=== PATIENT | male | born 1950 | race Hispanic/Latino ===

== ENCOUNTER 2017-08-10 15:00 | Observation (INO) | payer OTHER ==
[~2017-08-10] VITALS: Ht 165.1 cm; Wt 96.8 kg
[~2017-08-10 15:00] MED LIST: ASPI-555 PO; CARV6.25 PO; CLOP75TA32 PO; FINA5TAB41 PO; GABA-318 PO; LEVO175T9 PO; LISI2.5T2 PO; NITR0.4T SL; PANT40TA25 PO; RANO10003 PO; SIMV20TA6 PO; TAMS0.4C32 PO; TRAM-355 PO; [UNRECOGNIZED DRUG - CODE] PO
[2017-08-10 15:23] LABS: BASOPHILS % (AUTO) 0.5 % (0.0-5.0); EOSINOPHILS % (AUTO) 1.3 % (0.0-8.0); LYMPHOCYTES % (AUTO) 12.6 % (21.0-51.0); MEAN CORPUSCULAR HEMOGLOBIN 31.4 pg (27.0-33.0); MEAN CORPUSCULAR HGB CONC 34.7 g/dL (32.0-36.0); MEAN CORPUSCULAR VOLUME 90.5 fL (79-99); MONOCYTES % (AUTO) 8.4 % (3.0-13.0); NEUTROPHILS % (AUTO) 77.2 % (40.0-77.0); PLATELET COUNT (AUTO) 201 K/uL (130-400); RED BLOOD CELL COUNT(AUTO) 4.86 MIL/uL (4.50-6.20); RED CELL DISTRIBUTION WIDTH 13.9 % (11.0-15.5); WHITE BLOOD COUNT (AUTO) 11.7 K/uL (4.8-10.8)
[2017-08-10 15:34] LABS: INR 0.95 (0.85-1.15); PARTIAL THROMBOPLASTIN TIME 26.5 SEC (26.3-35.5)
[2017-08-10 15:37] LABS: CREATININE 1.1 mg/dL (0.5-1.5); POTASSIUM 4.4 mmol/L (3.5-5.1)
[2017-08-10 16:08] LABS: ALBUMIN 3.8 g/dL (3.5-5.0); BILIRUBIN,TOTAL 0.6 mg/dL (0.2-1.0); CREATINE KINASE MB 0.5 ng/mL (0.5-3.6); TOTAL PROTEIN, SERUM 8.5 g/dL (6.0-8.3)
[2017-08-10 16:21] LABS: B-TYPE NATRIURETIC PEPTIDE 19 pg/mL (0-100)
[2017-08-10] MEDS ORDERED: ASPIRIN 325 MG TABLET ONE (16:43)
[2017-08-10] MEDS ORDERED: NITROGLYCERIN 1GM/1 INCH PACKET TD ONE (16:43)
[2017-08-10] MEDS ORDERED: ONDANSETRON HCL 4 MG/2 ML VIAL ONE (16:43)
[2017-08-10] MEDS ORDERED: MORPHINE SULFATE 2 MG/ML 1ML SYG ONE ×2 (16:44)
[2017-08-11 05:15] LABS: BASOPHILS % (AUTO) 0.4 % (0.0-5.0); EOSINOPHILS % (AUTO) 0.1 % (0.0-8.0); HEMATOCRIT 43.4 % (42-54); LYMPHOCYTES % (AUTO) 12.7 % (21.0-51.0); MEAN CORPUSCULAR HEMOGLOBIN 31.1 pg (27.0-33.0); MEAN CORPUSCULAR HGB CONC 34.7 g/dL (32.0-36.0); MEAN CORPUSCULAR VOLUME 89.8 fL (79-99); MONOCYTES % (AUTO) 8.2 % (3.0-13.0); NEUTROPHILS % (AUTO) 78.6 % (40.0-77.0); PLATELET COUNT (AUTO) 178 K/uL (130-400); RED BLOOD CELL COUNT(AUTO) 4.84 MIL/uL (4.50-6.20); RED CELL DISTRIBUTION WIDTH 13.9 % (11.0-15.5); WHITE BLOOD COUNT (AUTO) 7.5 K/uL (4.8-10.8)
[2017-08-11 05:31] LABS: CARBON DIOXIDE 25 mmol/L (21-32); CHLORIDE 97 mmol/L (101-111); GLOMERULAR FILTR. RATE CALC 80 mL/min (>60); GLUCOSE,RANDOM 168 mg/dL (70-105); POTASSIUM 3.7 mmol/L (3.5-5.1); SODIUM SERUM 132 mmol/L (136-145); UREA NITROGEN, BLOOD 15 mg/dL (7-18)
[2017-08-11 05:46] LABS: ALANINE AMINOTRANSFERASE 22 U/L (12-78); ALBUMIN 3.5 g/dL (3.5-5.0); ASPARTATE AMINOTRANSFERASE 15 U/L (10-37); BILIRUBIN,TOTAL 0.9 mg/dL (0.2-1.0); CREATINE KINASE MB < 0.5 ng/mL (0.5-3.6); CREATINE KINASE, TOTAL 74 U/L (21-232); MYOGLOBIN 33 ng/mL (10-92); TOTAL PROTEIN, SERUM 8.1 g/dL (6.0-8.3); TROPONIN I 0.06 ng/mL (0.00-0.06)
[2017-08-11 06:25] VITALS: BP 136/84
[2017-08-11] MEDS: INSULIN R PO SS1 SQ SCH ×3 (07:30→16:30)
[2017-08-11 08:04] VITALS: BP 119/85
[2017-08-11] MEDS ORDERED: METF850T2 PO (08:45)
[2017-08-11] MEDS ORDERED: OMEG100014 PO (08:45)
[2017-08-11] MEDS ORDERED: CANA300T PO (08:45)
[2017-08-11] MEDS ORDERED: GLIP5TAB97 PO (08:45)
[2017-08-11] MEDS ORDERED: HUM10VIA SQ ×2 (08:45)
[2017-08-11] MEDS ORDERED: OXYB5TAB10 PO (08:45)
[2017-08-11] MEDS ORDERED: ISOS60TA4 PO (08:45)
[2017-08-11] MEDS ORDERED: METOPROLOL TARTRATE 25 MG TAB PO SCH (09:00)
[2017-08-11] MEDS ORDERED: ENOXAPARIN SODIUM 40 MG/0.4 ML SYRINGE SQ SCH (09:00)
[2017-08-11] MEDS ORDERED: ASPIRIN 81MG TAB.CHEW PO SCH (09:00)
[2017-08-11] MEDS ORDERED: ATORVASTATIN CALCIUM 10 MG TABLET PO SCH (09:45)
[2017-08-11] MEDS ORDERED: CARVEDILOL 25 MG TABLET PO SCH (09:45)
[2017-08-11] MEDS ORDERED: ISOSORBIDE MONO 60 MG TAB.SR PO SCH (09:45)
[2017-08-11] MEDS ORDERED: RANOLAZINE 500 MG TAB.SR.12H PO SCH (09:45)
[2017-08-11] MEDS ORDERED: CLOPIDOGREL BISULFATE 75 MG TAB PO SCH (09:45)
[2017-08-11] MEDS ORDERED: RANOLAZINE 500 MG TAB.SR.12H PO ONE (10:08)
[2017-08-11] MEDS ORDERED: ISOSORBIDE MONO 60 MG TAB.SR PO ONE (10:08)
[2017-08-11] MEDS ORDERED: ATORVASTATIN CALCIUM 10 MG TABLET PO ONE (10:08)
[2017-08-11] MEDS ORDERED: MAGNESIUM 2GM PREMIX 50ML 50 ML IV SCH (11:15)
[2017-08-11 12:00] VITALS: BP 111/70
[2017-08-11 14:03] LABS: CREATINE KINASE MB < 0.5 ng/mL (0.5-3.6); CREATINE KINASE, TOTAL 75 U/L (21-232); MYOGLOBIN 35 ng/mL (10-92); TROPONIN I 0.05 ng/mL (0.00-0.06)
[2017-08-11 16:00] VITALS: BP 109/67
[2017-08-11] MEDS ORDERED: CARV25TA PO (16:46)
== END 2017-08-11 17:45 | disposition home or self-care (01) ==
LOC: EDH 15:00 → EDHIP 21:00 → 3AH 08-11 05:43
PROVIDERS: ADMIT Internal Medicine; ATTEND Internal Medicine
DX: I25.118 Atherosclerotic heart disease of native coronary artery with other forms of angina pectoris (principal); I10 Essential (primary) hypertension; E11.51 Type 2 diabetes mellitus with diabetic peripheral angiopathy without gangrene; N40.0 Benign prostatic hyperplasia without lower urinary tract symptoms; E78.5 Hyperlipidemia, unspecified; F17.210 Nicotine dependence, cigarettes, uncomplicated; E03.9 Hypothyroidism, unspecified; Z95.1 Presence of aortocoronary bypass graft; I73.9 Peripheral vascular disease, unspecified
CPT/HCPCS: 36415 ×2; 71045; 80053 ×2; 82550 ×3; 82553 ×3; 82948 ×2; 83735; 83874 ×2; 83880; 84443; 84484 ×4; 85025 ×2; 85610; 85730; 93005; 96365; 96366; 96372; 99285; G0378 ×21; J1650; J2405; J3475

== ENCOUNTER → 2018-04-13 | Outpatient (CLI) | payer OTHER ==
[~2018-04-13] MED LIST changes: +AMLO5TAB7 PO; +CANA300T PO; +CARV25TA PO; -CARV6.25 PO; +ESOM20CA31 PO; +HUM10VIA SQ; +ISOS60TA4 PO; -LISI2.5T2 PO; +MAGN250T10 PO; +METF-445 PO; +OMEG100014 PO; +OXYB5TAB10 PO; -PANT40TA25 PO; +PRAV20TA4 PO; -SIMV20TA6 PO; -[UNRECOGNIZED DRUG - CODE] PO; +iron PO
== END | disposition home or self-care (01) ==
LOC: RAH 10:37
PROVIDERS: ATTEND Internal Medicine Gastroenterology
DX: R13.12 Dysphagia, oropharyngeal phase (principal); K21.9 Gastro-esophageal reflux disease without esophagitis; I13.0 Hypertensive heart and chronic kidney disease with heart failure and stage 1 through stage 4 chronic kidney disease, or unspecified chronic kidney disease; E11.22 Type 2 diabetes mellitus with diabetic chronic kidney disease; N18.9 Chronic kidney disease, unspecified; I50.9 Heart failure, unspecified; I25.10 Atherosclerotic heart disease of native coronary artery without angina pectoris; E11.51 Type 2 diabetes mellitus with diabetic peripheral angiopathy without gangrene; E78.5 Hyperlipidemia, unspecified; Z87.891 Personal history of nicotine dependence
CPT/HCPCS: 74230; 92611

== ENCOUNTER 2019-02-06 05:30 | Day surgery (SDC) | payer OTHER ==
[~2019-02-06] VITALS: Ht 165.1 cm; Wt 96.6 kg
[~2019-02-06 05:30] MED LIST changes: -AMLO5TAB7 PO; +ARMO150T6 PO; -ESOM20CA31 PO; -GABA-318 PO; +GABA600T10 PO; -HUM10VIA SQ; +INS7030 SQ; +PANT40TA25 PO; -PRAV20TA4 PO; +ROSU5TAB12 PO
[2019-02-06] MEDS ORDERED: SODIUM CHLORIDE 0.9% 1000ML 1,000 ML IV ONE (06:03)
[2019-02-06 07:16] VITALS: BP 129/62
[2019-02-06] MEDS ORDERED: PROPOFOL 10 MG/ML 20ML VIAL IV ONE (09:39)
[2019-02-06 09:43] VITALS: BP 137/89
[2019-02-06 09:52] VITALS: BP 125/58
[2019-02-06 09:57] VITALS: BP 133/62
[2019-02-06 10:04] VITALS: BP 128/61
== END 2019-02-06 10:15 | disposition home or self-care (01) ==
LOC: ENDO 05:30 → DAH 05:30 → ENDO 10:15
PROVIDERS: ATTEND Internal Medicine
DX: K31.7 Polyp of stomach and duodenum (principal); K29.50 Unspecified chronic gastritis without bleeding; K21.0 Gastro-esophageal reflux disease with esophagitis; E03.9 Hypothyroidism, unspecified; E78.5 Hyperlipidemia, unspecified; I25.10 Atherosclerotic heart disease of native coronary artery without angina pectoris; I11.0 Hypertensive heart disease with heart failure; I50.9 Heart failure, unspecified; E11.9 Type 2 diabetes mellitus without complications; I25.2 Old myocardial infarction; E66.9 Obesity, unspecified; Z88.1 Allergy status to other antibiotic agents; Z95.5 Presence of coronary angioplasty implant and graft; Z79.4 Long term (current) use of insulin; Z79.84 Long term (current) use of oral hypoglycemic drugs; Z79.899 Other long term (current) drug therapy; Z80.0 Family history of malignant neoplasm of digestive organs; Z87.891 Personal history of nicotine dependence; Z82.49 Family history of ischemic heart disease and other diseases of the circulatory system; Z83.3 Family history of diabetes mellitus; Z68.35 Body mass index [BMI] 35.0-35.9, adult
CPT/HCPCS: 43239; 82948 ×2; 88305; A4606; J2704; J7030

== ENCOUNTER → 2019-12-17 | Outpatient (CLI) | payer OTHER ==
[~2019-12-17] MED LIST changes: -ASPI-555 PO; +ASPI-556 PO; -OXYB5TAB10 PO; +OXYB5TAB15 PO
== END | disposition home or self-care (01) ==
LOC: OIH 09:59
PROVIDERS: ATTEND Internal Medicine
DX: M79.632 Pain in left forearm (principal)
CPT/HCPCS: 73090

== ENCOUNTER → 2020-01-10 | Outpatient (CLI) | payer OTHER | END | disposition home or self-care (01) | LOC: RAH 10:38 | PROVIDERS: ATTEND Internal Medicine | DX: M47.817 Spondylosis without myelopathy or radiculopathy, lumbosacral region (principal); M47.816 Spondylosis without myelopathy or radiculopathy, lumbar region | CPT/HCPCS: 72100 ==

== ENCOUNTER → 2022-01-11 | Outpatient (CLI) | payer OTHER ==
[~2022-01-11] MED LIST changes: -ISOS60TA4 PO; +ISOS60TA77 PO; -PANT40TA25 PO; +PANT40TA54 PO
== END | disposition home or self-care (01) ==
LOC: SHCH 10:11
PROVIDERS: ATTEND Internal Medicine Cardiovascular Disease
DX: I70.293 Other atherosclerosis of native arteries of extremities, bilateral legs (principal)
CPT/HCPCS: 93925

== ENCOUNTER 2022-04-30 16:05 | Emergency (ER) | payer OTHER ==
[~2022-04-30] VITALS: Ht 165.1 cm; Wt 97.1 kg
[2022-04-30 16:44] LABS: APPEARANCE,URINE CLEAR (CLEAR); BILIRUBIN,URINE NEGATIVE (NEGATIVE); COLOR,URINE LIGHT-YELLOW (YELLOW); GLUCOSE, URINE (UA) >=1000 mg/dL (NEGATIVE); KETONES,URINE 10 mg/dL (NEGATIVE); LEUKOCYTE ESTERASE ,URINE NEGATIVE Leu/uL (NEGATIVE); NITRATE,URINE NEGATIVE (NEGATIVE); OCCULT BLOOD,URINE NEGATIVE (NEGATIVE); PH,URINE 5.5 (5.0-8.0); PROTEIN,URINE NEGATIVE (NEGATIVE); UROBILINOGEN,URINE 0.2 mg/dL (0.2-1.0)
[2022-04-30 16:49] LABS: RBC,URINE 0-1 /HPF (0-1); SQUAMOUS EPITHELIAL CELL,UR RARE /HPF (0-2)
[2022-04-30 17:45] VITALS: BP 136/87
== END 2022-04-30 18:11 | disposition home or self-care (01) ==
LOC: EDH 16:05
DX: R33.9 Retention of urine, unspecified (principal); E11.9 Type 2 diabetes mellitus without complications; E78.00 Pure hypercholesterolemia, unspecified; Z88.1 Allergy status to other antibiotic agents; Z95.1 Presence of aortocoronary bypass graft; Z79.84 Long term (current) use of oral hypoglycemic drugs; Z79.82 Long term (current) use of aspirin
CPT/HCPCS: 51702; 81001

== ENCOUNTER → 2022-09-03 | Outpatient (CLI) | payer OTHER | END | disposition home or self-care (01) | LOC: RAH 14:41 | PROVIDERS: ATTEND Internal Medicine | DX: M25.512 Pain in left shoulder (principal) | CPT/HCPCS: 73030 ==